=== PATIENT | female | born 2000 | race Caucasian/White ===

== ENCOUNTER 2018-04-05 11:10 | Emergency (ER) | payer OTHER ==
[~2018-04-05] VITALS: Ht 165.1 cm; Wt 51.0 kg
[2018-04-05 11:23] VITALS: Ht 165.1 cm; Wt 51.0 kg
[2018-04-05 12:44] LABS: BASOPHIL % 0.4 % (0-2); PLATELET COUNT 192 x10^3mcL (130-400); RED CELL DISTRIBUTION WIDTH 14.3 % (11.5-14.5)
[2018-04-05 12:49] LABS: UA SPECIFIC GRAVITY 1.015 (1.005-1.035); microscopic required? YES; urine erythrocyte NEGATIVE (NEGATIVE)
[2018-04-05 13:41] VITALS: BP 105/64
== END 2018-04-05 14:02 | disposition home or self-care (01) ==
LOC: ED 11:10
PROVIDERS: Emergency Medicine
DX: O20.0 Threatened abortion (principal)
CPT/HCPCS: 36415